=== PATIENT | male | born 1970 | race American Indian/Alaskan Native ===

== ENCOUNTER 2017-07-29 06:16 | Emergency (ER) | payer SELFPAY ==
--- NOTE | 2017-07-29 07:59 | Emergency Department Report ---
Minor Respiratory - HPI Chief Complaint: Earache Stated Complaint: FEVER,LEFT EAR PAIN,COUGH Time Seen by Provider: 07/29/17 07:47 Duration: 3 Days Pain Location: Ear, Chest Severity: mild Minor Respiratory: Yes Rhinorrhea, Yes Able to Tolerate Fluids, Yes Ear Pain, Yes Cough, Yes Fever, No Sore Throat, No Sick Contacts, No Hemoptysis, No Chest Pain, No Shortness of Breath Other History: Mr. Rubin is a healthy 46-year-old male with history of hypertension and tobacco abuse. He presents with fever left ear pain cough. Cough productive of green-brown sputum He's been ill for 3 days. He does not take any medications to address his hypertension. He says "I just don't take any medicine". ED Review of Systems ROS: Stated complaint: FEVER,LEFT EAR PAIN,COUGH Other details as noted in HPI Constitutional: fever, malaise ENT: ear pain. denies: throat pain Respiratory: cough Cardiovascular: denies: chest pain Gastrointestinal: denies: abdominal pain, nausea, vomiting ED Past Medical Hx - Past Medical History Previous Medical History?: No Hx Hypertension: Yes - Surgical History Past Surgical History?: No - Social History Smoking Status: Never Smoker Substance Use Type: None - Medications Home Medications: Home Medications Medication Instructions Recorded Confirmed Last Taken Type Amoxicillin/Potassium Clav 1 each PO BID 10 Days #20 tablet 07/29/17 Unknown Rx [Augmentin 875-125 Tablet] Loratadine 10 mg PO DAILY 14 Days #14 capsule 07/29/17 Unknown Rx amLODIPine [Norvasc] 5 mg PO DAILY #30 tab 07/29/17 Unknown Rx Minor Respiratory Exam - Exam General: Vital signs noted. No distress. Alert and acting appropriately. Well-appearing healthy infrequent cough HEENT: Yes Moist Mucous Membranes, Yes Rhinorrhea, No Pharyngeal Erythema ( mucous in the posterior oropharynx), No Pharyngeal Exudates, No Conjuctival Injection Ear: Left TM Erythema (opaque effusion) Neck: Yes Supple Lungs: Yes Good Air Exchange, Yes Cough, No Wheezes, No Ronchi, No Stridor, No Labored Respirations, No Retractions Heart: Yes Regular, No Murmur Neurologic: Alert and oriented, no deficits. Musculoskeletal: Unremarkable. ED Course Vital Signs 07/29/17 07:22 Temperature 98.6 F Pulse Rate 83 Respiratory 16 Rate Blood Pressure 185/106 O2 Sat by Pulse 97 Oximetry ED Medical Decision Making - Medical Decision Making Mr. Rubin has otitis media, URI, antibiotics are indicated with history of tobacco use and otitis media. Elevated blood pressure due to medication noncompliance. Prescriptions: Augmentin, loratadine and amlodipine. Critical care attestation.: If time is entered above; I have spent that time in minutes in the direct care of this critically ill patient, excluding procedure time. ED Disposition Clinical Impression: Otitis media, URI (upper respiratory infection), Hypertension Disposition: TO HOME OR SELFCARE Is pt being admited?: No Does the pt Need Aspirin: No Condition: Stable Instructions: Hypertension (ED), How to Stop Smoking (ED), Otitis Media (ED), Upper Respiratory Infection (ED) Prescriptions: amLODIPine [Norvasc] 5 mg PO DAILY #30 tab Amoxicillin/Potassium Clav [Augmentin 875-125 Tablet] 1 each PO BID 10 Days #20 tablet Loratadine 10 mg PO DAILY 14 Days #14 capsule Forms: Work/School Release Form(ED) Time of Disposition: 08:01
[2017-07-29 08:17] VITALS: BP 169/99
== END 2017-07-29 08:12 | disposition home or self-care (01) ==
LOC: ED 06:16
DX: H66.92 Otitis media, unspecified, left ear (principal); J06.9 Acute upper respiratory infection, unspecified; I10 Essential (primary) hypertension
CPT/HCPCS: 99282